=== PATIENT | female | born 1985 | race Caucasian/White ===

== ENCOUNTER 2017-05-21 14:52 | Emergency (ER) | payer MEDICAID, OTHER ==
[~2017-05-21] VITALS: Ht 162.6 cm; Wt 82.0 kg
[2017-05-21 14:55] VITALS: Ht 162.6 cm; Wt 82.0 kg
[2017-05-21] MEDS ORDERED: KETOROLAC 60 MG INJ IM STA (15:20)
--- NOTE | 2017-05-21 15:51 | ERD ---
ER Documentation Chief Complaint Date/Time DATE: 05/21/17 TIME: 15:48 Chief Complaint LT KNEE PAIN X 3 MONTHS , NO TRAUMA HPI Patient is a 31-year-old female who presents with left anterior knee pain that she has had for 3 months. She denies any trauma. She was taking Motrin which helped at first but is no longer helps. Denies any fever. Denies any numbness or tingling. Patient is ambulatory. ROS All systems reviewed and are negative except as per history of present illness. Medications Home Meds Active Scripts Tramadol HCl (Tramadol HCl) 50 Mg Tablet, 50 MG PO Q4 Y for PAIN, #20 TAB Prov:ANGELICA NESBITT PA-C 05/21/17 Ibuprofen* (Motrin*) 600 Mg Tab, 600 MG PO Q6, #30 TAB Prov:ANGELICA NESBITT PA-C 05/21/17 Allergies Allergies: Coded Allergies: No Known Allergy (Unverified , 05/21/17) PMhx/Soc Medical and Surgical Hx: pt denies Medical Hx History of Surgery: Yes (tubal ligation) Anesthesia Reaction: No Hx Neurological Disorder: No Hx Respiratory Disorders: No Hx Cardiac Disorders: No Hx Psychiatric Problems: No Hx Miscellaneous Medical Probl: No Hx Alcohol Use: No Hx Substance Use: No Hx Tobacco Use: No Smoking Status: Never smoker FmHx Family History: No diabetes Physical Exam Vitals Vital Signs Date Time Temp Pulse Resp B/P Pulse Ox O2 Delivery O2 Flow Rate FiO2 05/21/17 14:55 97.6 96 18 138/81 99 Physical Exam General: well developed, well nourished, alert, nontoxic, no distress Head: normocephalic, atraumatic Eyes: PERRL, normal conjunctiva Respiratory: Clear to auscaultation bilaterally, speaks in full sentences, no use of accesory muscles or labored breathing, no rales, ronchi, or wheezing Cardiovascular: RRR, No murmurs Extremities: moving all extremities normally, normal gait, no edema. Left knee : No erythema, no edema, full range of motion, no bony abnormalities, popliteal pulse 2+, sensation to light touch intact, nontender to palpation Results 24 hrs Current Medications Medications (Trade) Dose Ordered Sig/Chirag Route PRN Reason Start Time Stop Time Status Last Admin Dose Admin Ketorolac Tromethamine (Toradol) 60 mg ONCE STAT IM 7/22/17 15:20 05/21/17 15:21 DC 05/21/17 15:44 Procedures/MDM 31-year-old has knee pain. Is been going on for 3 months. There is no trauma. She is neurovascular intact. There is no evidence of infection or septic joint. She is ambulatory. She was given Toradol IM and x-ray of the knee was ordered. X-rays unremarkable. At discharge patient states the Toradol helped her. She was discharged with ibuprofen and tramadol for pain. Recommended this patient follow up with her primary care doctor within 48 hours or return to the emergency room for any worsening of symptoms. However this time I do believe there is suitable for outpatient management. I answered all their questions and they agreed with the plan and were discharged home. Departure Diagnosis: Primary Impression: Knee pain Condition: Stable ANGELICA NESBITT PA-C May 21, 2017 15:50
--- NOTE | 2017-05-21 16:16 | RADRPT ---
PROCEDURE: XR Knee. CLINICAL INDICATION: Knee pain TECHNIQUE: Three views of the left knee are available for review. COMPARISON: None available FINDINGS: The medial and lateral femorotibial compartments are preserved, as is the patellofemoral compartment . There is no acute osseous abnormality, marginal erosion or evidence of fracture. A joint effusion isseen. IMPRESSION: 1. No acute osseous abnormality. 2. Small joint RPTAT: PP .Daniel Nash MD, MD Date Time Electronically viewed and signed by .Daniel Nash MD, MD on 05/21/2017 16:16 .d/
[2017-05-21] MEDS ORDERED: IBUP-1542 PO (16:26)
[2017-05-21] MEDS ORDERED: TRAM50TA2 PO (16:26)
== END 2017-05-21 16:40 | disposition home or self-care (01) ==
LOC: FTE 14:52
DX: M25.562 Pain in left knee (principal)
CPT/HCPCS: 73562; J1885; 96372